=== PATIENT | female | born 1940 | race Caucasian/White ===

== ENCOUNTER 2019-10-18 10:50 | Outpatient (CLI) | payer MEDICARE ==
--- NOTE | 2019-10-18 12:47 | RAD ---
AP PELVIS: Date: 10/18/2019 HISTORY: Right hip pain. FINDINGS: There is deformity of the right femoral neck consistent with femoral neck fracture. This is suboptima lly evaluated. Recommend dedicated right hip films with better positioning. Left hip appears intact. The bony pelvis appears intact. Focal sclerosis in the left ilium is seen po ssibly representing bone island. IMPRESSION: Deformity of the right hip. The exam is poorly positioned. Fracture is not excluded. POS: AGW
--- NOTE | 2019-10-18 12:48 | RAD ---
RIGHT HIP 2 VIEWS: Date: 10/18/2019 HISTORY: Hip pain. Recommend further evaluation with CT. IMPRESSION: Evidence of subcapital fracture which is poorly evaluated due to positioning. Consider CT pelvis with attention to right hip. POS: [facility]EROA
== END 2019-10-18 10:51 | disposition home or self-care (01) ==
LOC: MADRAD 10:50
PROVIDERS: ATTEND Family Medicine
DX: M25.551 Pain in right hip (principal); G89.29 Other chronic pain; S72.011A Unspecified intracapsular fracture of right femur, initial encounter for closed fracture; M21.951 Unspecified acquired deformity of right thigh
CPT/HCPCS: 72170

== ENCOUNTER 2019-10-19 10:38 | Outpatient (CLI) | payer MEDICARE ==
--- NOTE | 2019-10-19 12:39 | CT ---
CT RIGHT HIP WITHOUT CONTRAST: Date: 10/19/2019 HISTORY: Possible fracture. COMPARISON: Hip radiograph prior day. 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 There is mild atrophy of the right gl uteus minimus and medius muscles. Relatively large greater trochanteric bursa effusion. There is a dysplastic appearance to the femoral head with foreshortened femoral neck. There is relatively moderate anterior hip joint narrowing. 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 Obturator ring is intact. No acute fracture or m alalignment. IMPRESSION: 1. No acute fracture or malalignment. 2. 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 3. Mild atrophy of gluteus medius and minimus muscles. 4. 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 5. Relatively large greater trochanteric bursa effusion. POS: HOME
== END 2019-10-19 10:39 | disposition home or self-care (01) ==
LOC: MADCT 10:38
PROVIDERS: ATTEND Family Medicine
DX: M25.551 Pain in right hip (principal); R93.89 Abnormal findings on diagnostic imaging of other specified body structures; M16.11 Unilateral primary osteoarthritis, right hip; M25.451 Effusion, right hip